=== PATIENT | male | born 1955 ===

== ENCOUNTER 2023-02-22 08:56 | Inpatient (IN) | payer OTHER ==
[~2023-02-22] VITALS: Ht 167.6 cm; Wt 61.2 kg
[2023-02-22] MEDS ORDERED: LEVOTHYROXINE25 MCG PO (12:06)
[2023-02-22] MEDS ORDERED: ATACAND16 MG PO (12:06)
[2023-02-22] MEDS ORDERED: METFORMIN HCL500 M3 PO (12:06)
[2023-03-04] MEDS ORDERED: HYOSCYAMINE0.125 M1 SL (16:22)
[2023-03-04] MEDS ORDERED: TAMS0.4C PO (16:22)
[2023-03-04] MEDS ORDERED: GABAPENTIN300 MG PO (16:23)
[2023-03-04] MEDS ORDERED: PERCOCET 5-3251 EACH PO (16:23)
== END 2023-03-04 16:48 | disposition home or self-care (01) | DRG 330 ==
LOC: EDSTATUS 09:00 → ADM 09:00 → SURH 03-01 07:00 → O/R 03-01 12:03 → SURH 03-01 18:20
PROVIDERS: ADMIT Surgery; ATTEND Surgery
PROC: 0DTP4ZZ Resection of Rectum, Percutaneous Endoscopic Approach (ICD-10-PCS; 2023-03-01)
PROC: 0DTQ4ZZ Resection of Anus, Percutaneous Endoscopic Approach (ICD-10-PCS; 2023-03-01)
PROC: 0D1E4Z4 Bypass Large Intestine to Cutaneous, Percutaneous Endoscopic Approach (ICD-10-PCS; 2023-03-01)
PROC: 0DTN4ZZ Resection of Sigmoid Colon, Percutaneous Endoscopic Approach (ICD-10-PCS; principal; 2023-03-01 07:00)
DX: C21.1 Malignant neoplasm of anal canal (principal); K62.5 Hemorrhage of anus and rectum; K62.6 Ulcer of anus and rectum; R59.0 Localized enlarged lymph nodes